=== PATIENT | male | born 1955 | race Caucasian/White ===

== ENCOUNTER 2017-01-27 10:09 | Day surgery (SDC) | payer MEDICARE, MEDICAID ==
[~2017-01-27] VITALS: Ht 182.9 cm; Wt 96.0 kg
[~2017-01-27 10:09] MED LIST: ACETAMINOPHEN 500 MG TAB (TYLENOL) PO PRN; CHONDROITIN/HYALURONATE (DISCOVISC) 1 ML SYR IO ONE; PHENYLEPHRINE/KETOROLAC 4 ML VIAL IO ONE; SODIUM CHLORIDE FLUSH 3 ML SYR IV PRN; TETRACAINE 0.5% OPHTHALMIC SOLUTION 4 ML BTL ONE; diphenhydrAMINE 50 MG/ML INJ (BENADRYL) IV PRN
--- OUTSIDE RECORDS SUMMARY | 2017-01-27 10:14 | XMS REPORT | Continuity of Care Document ---
Author Author [facility] Organization [facility] Address Unknown Phone Unavailable Allergies Active Description Code Type Severity Reaction Onset Reported/Identified Relationship to Patient Clinical Status Yes Sulfa (Sulfonamide Antibiotics) 491 Allergen Group mild to moderate Unknown Medications Problems Date Dx Coded Attending Type Code Diagnosis Diagnosed By 10/25/2015 Luis Perera M17.12 Unilateral Primary Osteoarthritis, Left Knee Procedures Results Encounters ACCT No. Visit Date/Time Discharge Status Pt. Type Provider Facility Loc./Unit Complaint [id number] 10/17/2015 07:30:00 10/20/2015 17: 40:00 DIS Inpatient Luis Perera [facility] INPT Left Total Knee Replacement
[2017-01-27 10:29] VITALS: BP 134/82
[2017-01-27] MEDS ORDERED: METO200T32 PO (10:42)
[2017-01-27] MEDS ORDERED: ETOD500T PO (10:42)
[2017-01-27] MEDS ORDERED: VALS1TAB78 PO (10:42)
[2017-01-27] MEDS ORDERED: ASPI-586 PO (10:42)
[2017-01-27] MEDS ORDERED: HYDR-3811 PO (10:42)
[2017-01-27] MEDS ORDERED: ATOR40TA59 PO (10:42)
[2017-01-27] MEDS: LIDOCAINE 3.5% OPHTH GEL (AKTEN) 1 ML BTL OD SCH ×4 (10:42→11:12)
[2017-01-27] MEDS: CATARACT PRE-OP EYE DROPS 0.5ML SYRINGE OD SCH ×3 (10:52→11:12)
[2017-01-27] MEDS: HOME MEDICATION OD SCH ×3 (10:52→11:12)
[2017-01-27] MEDS ORDERED: MIDAZOLAM 2 MG/2 ML (VERSED) VIAL ONE (11:43)
[2017-01-27] MEDS ORDERED: ACETYLCHOLINE CHLORIDE 20 MG/2 ML KIT IO ONE (12:16)
[2017-01-27 12:30] VITALS: BP 130/87
== END 2017-01-27 12:48 | disposition home or self-care (01) ==
LOC: ASC 10:09
PROVIDERS: ATTEND Ophthalmology
DX: H25.11 Age-related nuclear cataract, right eye (principal); I10 Essential (primary) hypertension; I25.2 Old myocardial infarction; I51.9 Heart disease, unspecified; Z79.82 Long term (current) use of aspirin
CPT/HCPCS: 36415; 66982; 84132; 93005; A9270; C9447; J2250; V2632

== ENCOUNTER 2017-02-17 08:32 | Day surgery (SDC) | payer MEDICARE, MEDICAID ==
[~2017-02-17] VITALS: Ht 182.9 cm; Wt 99.0 kg
[~2017-02-17 08:32] MED LIST changes: +ASPI-586 PO; +ATOR40TA59 PO; +ETOD500T PO; +HYDR-3811 PO; +METO200T32 PO; +VALS1TAB78 PO
--- OUTSIDE RECORDS SUMMARY | 2017-02-17 08:36 | XMS REPORT | Continuity of Care Document ---
Author Author [facility] Address Unknown Phone Unavailable Support Name Relationship Address Phone MARY ELLEN MONTOYA MD Caregiver [address] [place] [address] [place] Next Of Kin [address] [facility] [address] [place], [place] [address] Insurance Providers Payer Name Policy Number Subscriber Name Relationship Medicare A And B [id number] Angel Chen 20 Self / Same As Patient [facility] [employer] [id number] Angel Chen 20 Self / Same As Patient Advance Directives Directive Response Recorded Date/Time Advanced Directives No 01/27/17 10:29am Problems Active Problems Medical Problem Onset Date Status Decreased vision Unknown Acute Medications Current Home Medications Medication Dose Units Route Directions Days/Qty Instructions Start Date Valsartan/Hydrochlorothiazide 1 Each 1 Tab ORAL Daily 90 01/27/17 Hydrocodone Bit/Acetaminophen 1 Each 1 Tab ORAL As Needed 90 01/27/17 Etodolac 500 Mg 1 Tab ORAL Twice A Day 60 01/27/17 Metoprolol Succinate 200 Mg 1 Tab ORAL Daily 90 01/27/17 Aspirin 81 Mg 81 Mg ORAL Daily 01/27/17 Atorvastatin Calcium 40 Mg 40 Mg ORAL Daily 90 01/27/17 Social History Social History Problem Response Recorded Date/Time Onset Date Status Occupation or Former Occupation disabled 01/27/2017 10:35am Query Response Start Date Stop Date Smoking Status Former smoker Hospital Discharge Instructions No hospital discharge instructions. Plan of Care Discharge Date 01/27/17 12:48pm Prescriptions See Medication Section Functional Status No functional status results. Allergies, Adverse Reactions, Alerts Allergen Type Severity Reaction Status Last Updated Sulfa (Sulfonamide Antibiotics) Allergy Unknown Active 01/24/17 Immunizations No immunization records. Vital Signs Acute Vital Signs Vital Response Date/Time Temperature (Fahrenheit) 97.9 01/27/2017 12:30pm Pulse 51 bpm 01/27/2017 12:30pm Respirations 18 01/27/2017 12:30pm Height 6 ft 0 in Weight 211 lb Body Mass Index 28.0 kg/m^2 Results Laboratory Results Test Name Result Units Flags Reference Collection Date/Time Result Date/ Time Comments Potassium Level 4.1 mmol/L 3.5-5.1 01/27/2017 10:48am 01/27/2017 10: 58am Procedures No known history of procedures. Encounters Encounter Location Arrival/Admit Date Discharge/Depart Date Attending Provider Departed [facility] 01/27/17 10:09am 01/27/17 12: 48pm MARY ELLEN MONTOYA MD Recent Diagnosis Decreased vision
[2017-02-17 09:00] VITALS: BP 147/92
[2017-02-17] MEDS: LIDOCAINE 3.5% OPHTH GEL (AKTEN) 1 ML BTL OS SCH ×4 (09:07→09:39)
[2017-02-17] MEDS: HOME MEDICATION OS SCH ×3 (09:15→09:40)
[2017-02-17] MEDS: CATARACT PRE-OP EYE DROPS 0.5ML SYRINGE OS SCH ×4 (09:15→10:00)
[2017-02-17] MEDS ORDERED: ALFENTANIL 1,000 MCG/2 ML AMP IV ONE (10:00)
[2017-02-17] MEDS ORDERED: MIDAZOLAM 2 MG/2 ML (VERSED) VIAL ONE (10:00)
[2017-02-17] MEDS ORDERED: CHONDROITIN/HYALURONATE (DISCOVISC) 1 ML SYR IO ONE (10:39)
[2017-02-17 11:00] VITALS: BP 132/89
== END 2017-02-17 11:15 | disposition home or self-care (01) ==
LOC: ASC 08:32
PROVIDERS: ATTEND Ophthalmology
DX: H25.12 Age-related nuclear cataract, left eye (principal); I10 Essential (primary) hypertension; I25.2 Old myocardial infarction
CPT/HCPCS: 36415; 66984; 84132; A9270; C9447; J2250; V2632